=== PATIENT | female | born 1955 | race Caucasian/White ===

== ENCOUNTER 2018-09-09 16:20 | Emergency (ER) | payer OTHER ==
[~2018-09-09] VITALS: Ht 177.8 cm; Wt 96.5 kg
[2018-09-09 16:33] VITALS: Ht 177.8 cm; Wt 96.5 kg
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
[2018-09-09 22:02] VITALS: BP 150/83; PULSE 79; RESP 20
== END 2018-09-09 22:02 | disposition home or self-care (01) ==
LOC: FTE 16:20
DX: S39.012A Strain of muscle, fascia and tendon of lower back, initial encounter (principal); V49.49XA Driver injured in collision with other motor vehicles in traffic accident, initial encounter
CPT/HCPCS: 72072; 72100